=== PATIENT | female | born 1945 | race Caucasian/White ===

== ENCOUNTER → 2018-03-19 07:53 | Outpatient (CLI) | payer OTHER, SELFPAY ==
--- NOTE | 2018-03-19 | DI.MG.S_ITS ---
UNILATERAL RIGHT DIGITAL DIAGNOSTIC MAMMOGRAM 3D/2D WITH ADDITIONAL VIEWS POST LUMPECTOMY: 03/19/2018 CLINICAL: Additional evaluation requested from prior study. Personal history of breast cancer. Family history of breast cancer. Comparison is made to exams dated: 02/27/2018 mammogram, 12/27/2016 mammogram, and 10/12/2015 mammogram - [facility]. There are scattered fibroglandular elements in the right breast. Prior mammographic finding is no longer seen in the right breast. The right breast has post-operative findings. No significant masses, calcifications, or other findings are seen in the breast. IMPRESSION: INCOMPLETE: NEEDS ADDITIONAL IMAGING EVALUATION Questioned right breast finding resolves on further imaging. Recommend ultrasound for confirmation. This exam was interpreted at Station ID: [id number]. NOTE: For mammograms, a report in lay terms will be sent to the patient. Approximately 15% of breast malignancies will not be visualized mammographically. In the management of a palpable breast mass, a negative mammogram must not discourage biopsy of a clinically suspicious lesion. Electronically Signed By: Bassam Merino M.D. cj/:03/19/2018 09:52:28 copy to: GURMEET RICHARDSON copy to: DELONTE CHASE ACR BI-RADS Category 0: Incomplete [id number]
--- NOTE | 2018-03-19 | DI.US.S_ITS ---
ULTRASOUND OF RIGHT BREAST: 03/19/2018 CLINICAL: Follow up from addtional views. Comparison is made to exams dated: 03/19/2018 mammogram - [facility], 02/27/2018 mammogram, and 12/27/2016 mammogram - [facility]. Color flow ultrasound of the right breast was performed. Boyd scale images of the real-time examination were reviewed. Prior mammographic finding is no longer seen right breast. The right breast has post-operative findings. IMPRESSION: NEGATIVE There is no sonographic evidence of malignancy. A 1 year screening mammogram is recommended. This exam was interpreted at Station ID: [id number]. Electronically Signed By: Bassam Merino M.D. cj/:03/19/2018 11:35:25 copy to: GURMEET RICHARDSON copy to: DELONTE CHASE letter sent: Normal Exam Ultrasound BI-RADS: 1 Negative
== END ==
PROVIDERS: PCP Internal Medicine; Visit Provider Internal Medicine
DX: R92.8 Other abnormal and inconclusive findings on diagnostic imaging of breast (principal); Z85.3 Personal history of malignant neoplasm of breast; Z80.3 Family history of malignant neoplasm of breast
CPT/HCPCS: 76642; 77065; G0279

== ENCOUNTER 2023-08-16 08:41 | Outpatient (CLI) | payer OTHER, SELFPAY ==
[2023-08-16] VITALS (9 sets, daily range): BP systolic 133–192; BP diastolic 56–80; PULSE 63–74; RESP 10–18; TEMP 36.4; O2SAT 95–98
[2023-08-16] MEDS: MIDAZOLAM 2 MG/2 ML VIAL 1 MG IV (09:30)
--- NOTE | 2023-08-16 09:30 | DI.RAD.S_ITS ---
PROCEDURE: PAIN L INTERLAMINAR/CAUDAL INJ INDICATIONS: SPONDYLOSIS COMPARISON: None. FINDINGS: Fluoroscopic spot filming was performed to verify placement of spinal needles at the L4-5 level(s), as labeled on the films. Appropriate location(s) of the needle tip(s) was confirmed by injection of iodinated contrast. IMPRESSION: Fluoro guidance was provided intraoperatively for L4-5 interlaminar ANGELA performed by the ordering physician. Dictated by: Edin Nogueira M.D. on 08/16/2023 at 15:20 Approved by: Edin Nogueira M.D. on 08/16/2023 at 15:27
[2023-08-16] MEDS: DEXAMETHASONE 10 MG/ML VIAL INJ (09:31)
[2023-08-16] MEDS: iopamidoL 15 ML VIAL 3 ML INJ (09:31)
--- NOTE | 2023-08-16 11:52 | P.PCN_ITS ---
Date/Time/Diagnoses Date of procedure: 08/16/23 Time of procedure: 09:30 Procedure Notes Physician: Anoop Lane Total Fluoroscopy time (seconds): 11 Total sedation minutes: 10 Procedure in detail & Post-procedure care: L4-5 Interlaminar Epidural Steroid Injection Indications: Ginger is presenting for treatment of lumbar radiculopathy with low back and leg pain. Preoperative diagnosis: Lumbar radiculopathy Postoperative diagnosis: Same Focused Examination: Ax3 Mood and affect are normal Vital Signs: VSS ASA: 2 Consent: Following review of allergies and potential side effects/complications, including, but not necessarily limited to, infection, allergic reaction, local tissue breakdown, stroke, temporary or permanent nerve injury, paralysis, and possible , the patient indicated that they understood and agreed to pro ceed.? An informed consent document was signed by the patient, witnessed by a nurse and placed in the patient's chart.? Additionally, other treatment options including medications and physical therapy were reviewed with the patient. All questions were answered. Site was then marked. Anesthesia: After review of previous anesthetic history and IV conscious sedation, the patient was deemed safe to proceed with today's procedure with IV conscious sedation. IV sedation was accomplished with midazolam 1 mg administered by the RN after order by Dr. Lane. Sedation was titrated to patient comfort during the course of the procedure. Patient remained responsive to all verbal commands. Position: Prone Monitoring: NIBP, Pulse oximetry, 3 lead EKG Needle used: 18 G 3.5? Tuohy Contrast: Isovue 300M Injectate: Dexamethasone 10 mg with 1% lidocaine 2 mL Technique: The skin was prepped with chloraprep and then draped in a sterile fashion. Time out was performed as per protocol. Oxygen applied via NC. Skin and subcutaneous structures of the needle entry site was then infiltrated with 3 mL of lidocaine 1%. Under AP, lateral and contralateral oblique fluoroscopic control, the Tuohy needle was guided into the L4-5 epidural space. The space was accessed with loss of resistance technique. Isovue 300M was then injected and the spread was consistent with the epidural space. There was no evidence for intravascular or intrathecal uptake. After negative aspiration, the above- mentioned injectate was then slowly administered and the needle withdrawn. The patient expressed no unusual discomfort or paresthesias during the injection. Band-Aids applied to injection sites. EBL: less than 1 ml Complications: None Post Procedure: Patient was taken to the recovery and monitored. The patient was provided a Pain Log to continue to record the patient's response to the target- specific procedure prior to the patient's follow-up visit with the referring physician. Patient was stable upon discharge. Detailed post procedure instructions were provided. Patient was asked to call in the event of worsening pain, fever, weakness, numbness or bladder or bowel incontinence.
== END 2023-08-16 09:59 | disposition home or self-care (01) ==
LOC: RAD 08:42
PROVIDERS: PCP Internal Medicine; Referring Provider Anesthesiology; Visit Provider Anesthesiology
DX: M54.16 Radiculopathy, lumbar region (principal)
CPT/HCPCS: 62323; 82962; 99152; J1100; J2250

== ENCOUNTER → 2023-10-06 06:38 | Outpatient (CLI) | payer OTHER, SELFPAY ==
--- NOTE | 2023-10-06 06:39 | DI.US.S_ITS ---
PROCEDURE: US ABDOMEN LIMITED INDICATIONS: Unilateral inguinal hernia TECHNIQUE: Real-time focused scanning was performed of the inguinal region, with image documentation. COMPARISON: [facility], [place], PET NECK TO MID THIGH, 08/19/2022, 8:50. FINDINGS: Left fat containing inguinal hernia. The hernia is reducible. The hernia neck measures 1.3 cm. IMPRESSION: Fat containing left inguinal hernia. Dictated by: Girish Jameson M.D. on 10/06/2023 at 9:32 Approved by: Girish Jameson M.D. on 10/06/2023 at 9:35
== END ==
LOC: US 06:38
PROVIDERS: PCP Internal Medicine; Referring Provider Internal Medicine; Visit Provider Internal Medicine
DX: K40.90 Unilateral inguinal hernia, without obstruction or gangrene, not specified as recurrent (principal)
CPT/HCPCS: 76705

== ENCOUNTER 2023-10-18 08:46 | Outpatient (CLI) | payer OTHER, SELFPAY ==
[2023-10-18] VITALS (8 sets, daily range): BP systolic 122–154; BP diastolic 59–68; PULSE 55–75; RESP 12–16; TEMP 36.3; O2SAT 95–99
[2023-10-18] MEDS: MIDAZOLAM 2 MG/2 ML VIAL 1 MG IV (09:25)
[2023-10-18] MEDS: iopamidoL 15 ML VIAL 3 ML INJ (09:28)
[2023-10-18] MEDS: BUPIVACAINE 0.5% (PF) 10 ML VIAL 5 ML INJ (09:28)
--- NOTE | 2023-10-18 09:30 | DI.RAD.S_ITS ---
PROCEDURE: PAIN L/S FACET INJ/BLK 1ST ELYSIA INDICATIONS: SPONDYLOSIS COMPARISON: None. FINDINGS: Fluoroscopic spot filming was performed to verify placement of spinal needles at the bilateral L3 through L5 level(s), as labeled on the films. Appropriate location(s) of the needle tip(s) was confirmed by injection of iodinated contrast. IMPRESSION: Bilateral L3 through L5 needle and contrast localization. Dictated by: Niurka Guillen M.D. on 10/18/2023 at 13:43 Approved by: Niurka Guillen M.D. on 10/18/2023 at 13:43
--- NOTE | 2023-10-18 11:44 | P.PCN_ITS ---
Date/Time/Diagnoses Date of procedure: 10/18/23 Time of procedure: 09:30 Procedure Notes Physician: Anoop Lane Total Fluoroscopy time (seconds): 14 Total sedation minutes: 13 Procedure in detail & Post-procedure care: Bilateral L3, 4, 5 Lumbar Medial Branch Blocks Indications: Ginger is presenting for treatment of lumbar spondylosis with low back pain. Preoperative diagnosis: Lumbar spondylosis Postoperative diagnosis: Same Pre-procedure History: Patient demonstrates today moderate to severe non- radicular back pain without neurologic deficit aggravated by hyperextension yes Back pain greater than leg pain? yes Patient today has tenderness over the suspected joint(s) yes History of post-traumatic injury? no Hypertrophic arthropathy yes Back pain associated with suspected motion segment instability, hypermobility or pseudoarthrosis no Focused Examination: Ax3 Mood and affect are normal Vital Signs: VSS ASA: 2 Consent: Following review of allergies and potential side effects/complications, including, but not necessarily limited to, infection, allergic reaction, local tissue breakdown, stroke, temporary or permanent nerve injury, paralysis, and possible , the patient indicated that they understood and agreed to proceed.? An informed consent document was signed by the patient, witnessed by a nurse and placed in the patient's chart.? Additionally, other treatment options including medications and physical therapy were reviewed with the patient. All questions were answered. Site was then marked. Anesthesia: After review of previous anesthetic history and IV conscious sedation, the patient was deemed safe to proceed with today's procedure with IV conscious sedation. IV sedation was accomplished with midazolam 1 mg administered by the RN after order by Dr. Lane. Sedation was titrated to patient comfort during the course of the procedure. Patient remained responsive to all verbal commands. Position: Prone Monitoring: NIBP, Pulse oximetry, 3 lead EKG Needle used: 22 ga 3.5 inch spinal needle Contrast: Isovue 300M Injectate: 0.5% bupivacaine 1 mL per site Procedure: The patient was brought into the procedure room and positioned into the prone position. Skin was prepped with a Chloraprep solution, allowed to air dry, and then draped in sterile fashion.? The right L4-5 and L5-S1 facet joints were visually identified with fluoroscopy. Lidocaine 1% was used to anesthetize the skin over each target destination with a 25ga needle. A 22 ga, 3.5 inch spinal needle was advanced to the location of the medial branch at the junction of the superior articular process and the transverse process at L4,5 and the base of the SAP of the sacrum using intermittent fluoroscopy in the AP view. Isovue 300M contrast 0.2ml was injected at each level outlining the medial borders for each level and the base of the SAP of the sacrum in the AP and lateral views. There was no evidence of vascular or intrathecal uptake. The above injectate was slowly injected at each target destination. The left L4-5 and L5-S1 facet joints were visually identified with fluoroscopy. Lidocaine 1% was used to anesthetize the skin over each target destination with a 25ga needle. A 22 ga, 3.5 inch spinal needle was advanced to the location of the medial branch at the junction of the superior articular process and the transverse process at L4,5 and the base of the SAP of the sacrum using intermittent fluoroscopy in the AP view. Isovue 300M contrast 0.2ml was injected at each level outlining the medial borders for each level and the base of the SAP of the sacrum in the AP and lateral views. There was no evidence of vascular or intrathecal uptake. The above injectate was slowly injected at each target destination. At the end of the procedure the needles were withdrawn and Band- Aids were applied for a dressing. Post Procedure: Patient was taken to the recovery and monitored. The patient was provided a Pain Log to continue to record the patient's response to the target- specific procedure prior to the patient's follow-up visit with the referring physician. Patient was stable upon discharge. Detailed post procedure instructions were provided. Patient was asked to call in the event of worsening pain, fever, weakness, numbness or bladder or bowel incontinence. Based on the medial branches blocked today, if the patient meets insurance criteria for radiofrequency, the treatment should result in the denervation of the bilateral L4-5 and L5-S1 facet joint nerves. We would expect to denervate a total of 4 facets during the radiofrequency ablation.
--- NOTE | 2023-10-19 12:47 | PC.NURSE ---
Spoke with patient has no questions or concerns at this time regarding procedure yesterday.
== END 2023-10-18 10:00 | disposition home or self-care (01) ==
LOC: RAD 08:47
PROVIDERS: PCP Internal Medicine; Referring Provider Anesthesiology; Visit Provider Anesthesiology
DX: M47.816 Spondylosis without myelopathy or radiculopathy, lumbar region (principal)
CPT/HCPCS: 64493; 64494; 99152; J2250